=== PATIENT | female | born 1945 | race Caucasian/White ===

== ENCOUNTER 2018-04-29 06:54 | Day surgery (SDC) | payer MEDICARE ==
[~2018-04-29] VITALS: Ht 154.9 cm; Wt 65.4 kg
[~2018-04-29 06:54] MED LIST: ACET-1757 PO; ASCO500T8 PO; CALC1TAB86 PO; FAMO20TA7 PO; IBUP-1484 PO; LACT1CAP61 PO; MULT-230 PO; MV-M1TAB19 PO; NITR0.4T28 SL; PANT40TA5 PO; POTA1POW12 PO; VERA120T5 PO; VIT1TABL32 PO; focus factor PO; formula 303 PO
[2018-04-29 07:36] VITALS: BP 131/82
[2018-04-29] MEDS ORDERED: LACTATED RINGERS 1,000 ML IV SCH (07:40)
[2018-04-29] MEDS ORDERED: PROPOFOL 50 ML ONE (08:39)
[2018-04-29] MEDS ORDERED: LIDOCAINE-MPF 2% ,5ML ONE (08:47)
[2018-04-29] MEDS ORDERED: ALBUTEROL SULFATE 2.5 MG/3 ML NPPB PRN (09:30)
[2018-04-29] MEDS ORDERED: ACETAMINOPHEN 325 MG TABLET PO PRN (09:30)
[2018-04-29] MEDS ORDERED: ONDANSETRON ODT 8 MG PO PRN (09:30)
[2018-04-29] MEDS ORDERED: FENTANYL PF 100 MCG/2ML IV PRN (09:30)
== END 2018-04-29 10:45 | disposition home or self-care (01) ==
LOC: OUT 06:54
PROVIDERS: ATTEND Internal Medicine
DX: Z09 Encounter for follow-up examination after completed treatment for conditions other than malignant neoplasm (principal); K21.0 Gastro-esophageal reflux disease with esophagitis; K63.5 Polyp of colon; K31.89 Other diseases of stomach and duodenum; K57.30 Diverticulosis of large intestine without perforation or abscess without bleeding; I10 Essential (primary) hypertension; Z86.010 Personal history of colon polyps; Z98.890 Other specified postprocedural states; Z72.89 Other problems related to lifestyle
CPT/HCPCS: 43239; 45380; 88305; 93005; J2704; J3490; J7120